=== PATIENT | female | born 1960 | race Caucasian/White ===

== ENCOUNTER 2016-09-03 22:56 | Emergency (ER) | payer MEDICAID, OTHER ==
[~2016-09-03] VITALS: Ht 172.7 cm; Wt 113.4 kg
[~2016-09-03 22:56] MED LIST: ALBU0.0965 IH; GLIP10TE3 PO
[2016-09-03 23:06] VITALS: BP 142/90
--- NOTE | 2016-09-03 23:15 | NUR ---
PT TAKEN TO [facility] FROM [facility]
[2016-09-03] MEDS ORDERED: ESCI10TA PO (23:20)
[2016-09-03] MEDS ORDERED: LOSA50TA39 PO (23:20)
[2016-09-03] MEDS ORDERED: LAM200 PO (23:20)
[2016-09-03] MEDS ORDERED: METF500T PO (23:20)
[2016-09-03] MEDS ORDERED: METO25TE2 PO (23:20)
[2016-09-03] MEDS ORDERED: SIMV80TA1 PO (23:20)
[2016-09-03] MEDS ORDERED: HYDR25TA32 PO (23:20)
--- NOTE | 2016-09-03 23:29 | NUR ---
PT RETURN FROM XRAY TO BED 4
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
--- NOTE | 2016-09-04 00:33 | NUR ---
Madi shukla in [facility] - 09/04/16 at [address] Poe evaluating patient at bedside.
--- NOTE | 2016-09-04 00:38 | NUR ---
Dr. Poe evaluating patient at bedside.
[2016-09-04 01:15] VITALS: BP 142/90
--- NOTE | 2016-09-04 01:15 | NUR ---
Patient discharged with v/s stable. Written and verbal after care instructions given and explained. Patient alert, oriented and verbalized understanding of instructions. Ambulatory with steady gait. All questions addressed prior to discharge. ID band removed. Patient advised to follow up with PMD. Rx of KEFLEX AND NORCO given. Patient educated on indication of medication including possible reaction and side effects. Opportunity to ask questions provided and answered.
== END 2016-09-04 01:15 | disposition home or self-care (01) ==
LOC: MED 22:56
DX: L03.116 Cellulitis of left lower limb (principal); E11.9 Type 2 diabetes mellitus without complications; I10 Essential (primary) hypertension; F12.90 Cannabis use, unspecified, uncomplicated; Z71.6 Tobacco abuse counseling; Z88.1 Allergy status to other antibiotic agents
CPT/HCPCS: 73630; 99284

== ENCOUNTER 2016-09-12 01:55 | Emergency (ER) | payer OTHER ==
[~2016-09-12] VITALS: Ht 172.7 cm; Wt 102.1 kg
[~2016-09-12 01:55] MED LIST changes: +ESCI10TA PO; +HYDR25TA32 PO; +LAM200 PO; +LOSA50TA39 PO; +METF500T PO; +METO25TE2 PO; +SIMV80TA1 PO
--- NOTE | 2016-09-12 07:05 | NUR ---
PATIENT LEFT WITHOUT BEING SEEN BY DR. BLANKENSHIP. NO FURTHER CARE PROVIDED FOR PATIENT.
== END 2016-09-12 07:05 | disposition left against medical advice (07) ==
LOC: MED 01:55
DX: M79.672 Pain in left foot (principal); Z53.21 Procedure and treatment not carried out due to patient leaving prior to being seen by health care provider

== ENCOUNTER 2017-10-26 07:06 | Day surgery (SDC) | payer OTHER ==
[~2017-10-26] VITALS: Ht 170.2 cm; Wt 104.3 kg
[2017-10-26] MEDS ORDERED: MIDAZOLAM 2 MG/2 ML VIAL ONE (09:01)
[2017-10-26] MEDS ORDERED: fentaNYL 0.05 MG/ML VIAL ONE (09:01)
[2017-10-26] MEDS ORDERED: MIDAZOLAM 2 MG/2 ML VIAL IVP ONE (10:15)
== END 2017-10-26 10:46 | disposition home or self-care (01) ==
LOC: MDS 07:06 → MMU 07:08 → MDS 10:36
PROVIDERS: ATTEND Internal Medicine Gastroenterology
DX: K22.10 Ulcer of esophagus without bleeding (principal); K31.89 Other diseases of stomach and duodenum; I10 Essential (primary) hypertension; E11.9 Type 2 diabetes mellitus without complications; J44.9 Chronic obstructive pulmonary disease, unspecified; F41.9 Anxiety disorder, unspecified; F17.210 Nicotine dependence, cigarettes, uncomplicated; K59.00 Constipation, unspecified; M19.90 Unspecified osteoarthritis, unspecified site; E78.5 Hyperlipidemia, unspecified; G43.909 Migraine, unspecified, not intractable, without status migrainosus; F12.90 Cannabis use, unspecified, uncomplicated; Z87.442 Personal history of urinary calculi; Z79.84 Long term (current) use of oral hypoglycemic drugs; Z79.899 Other long term (current) drug therapy; Z88.1 Allergy status to other antibiotic agents; Z90.49 Acquired absence of other specified parts of digestive tract
CPT/HCPCS: 36415; 43239; 82948; 86677; J2250; J3010

== ENCOUNTER 2018-07-13 22:20 | Emergency (ER) | payer OTHER ==
[~2018-07-13] VITALS: Ht 170.2 cm; Wt 104.3 kg
[~2018-07-13 22:20] MED LIST changes: -LOSA50TA39 PO; +LOSA50TA66 PO
[2018-07-13 22:22] VITALS: BP 126/81
--- NOTE | 2018-07-13 22:25 | NUR ---
TO LOBBY A/W BED, VSS , AMBULATORY.
--- NOTE | 2018-07-13 22:56 | NUR ---
PT TAKEN TO BED 8
--- NOTE | 2018-07-13 23:10 | NUR ---
FIRST CONTACT WITH PT C/O L RIB PAIN 11/02 ACHING CONTINUOUS, NONRADIATING WORSENING TODAY, RECENTLY FOUND TO BE BROKEN DURING HOSPITAL VISIT. ALSO C/O WHEEZING IN LUNGS, HX OF COPD, LUNG SOUNDS WHEEZING BILAT THROUGHOUT ON EXPIRATION RESPIS E/U, NO SOB NOTED. DENIES CP/SOB AT THIS TIME. NO OTHER COMPLAINTS. BED LOCKED, IN LOW POSITION, SIE RAILS UPX1. PLACED ON FULL MONITOR.
[2018-07-13] MEDS ORDERED: ALBUTEROL SULFATE/IPRATROPIU 3 ML SOL IH ONE (23:25)
[2018-07-13] MEDS ORDERED: predniSONE 20 MG TAB PO ONE (23:25)
[2018-07-13] MEDS ORDERED: ALBUTEROL 0.083% 2.5 MG/3 ML NEBU INH ONE (23:25)
--- NOTE | 2018-07-13 23:32 | NUR ---
Respiratory Therapist at bedside for respiratory intervention.
--- NOTE | 2018-07-14 00:50 | NUR ---
Dr. Schulz evaluating patient at bedside.
[2018-07-14] MEDS ORDERED: KETOROLAC 60 MG/2 ML VIAL IM ONE (00:55)
--- NOTE | 2018-07-14 01:05 | NUR ---
Madi francisviolet in EDM - 07/14/18 at 0126 by [email or web address] PT REPORT GIVEN TO [facility], TAKEN BLS TO [facility]. TRANSFER TO FACILITY AT THIS TIME. Patient Tranfers to outside Facility Physician: DR DAVIDSON Location:[facility]
[2018-07-14 01:20] VITALS: BP 128/84
--- NOTE | 2018-07-14 01:20 | NUR ---
Patient discharged with v/s stable. Written and verbal after care instructions given and explained. Patient alert, oriented and verbalized understanding of instructions. Ambulatory with steady gait. All questions addressed prior to discharge. ID band removed. Patient advised to follow up with PMD. Rx of PREDNISONE AND NORCO given. Patient educated on indication of medication including possible reaction and side effects. Opportunity to ask questions provided and answered.
== END 2018-07-14 01:20 | disposition home or self-care (01) ==
LOC: MED 22:20
DX: S20.212A Contusion of left front wall of thorax, initial encounter (principal); I10 Essential (primary) hypertension; J44.9 Chronic obstructive pulmonary disease, unspecified; E11.9 Type 2 diabetes mellitus without complications; Z88.1 Allergy status to other antibiotic agents; Z79.84 Long term (current) use of oral hypoglycemic drugs; Z79.899 Other long term (current) drug therapy; X58.XXXA Exposure to other specified factors, initial encounter; Y93.89 Activity, other specified; Y92.89 Other specified places as the place of occurrence of the external cause; Y99.8 Other external cause status
CPT/HCPCS: 94640; 96372; 99283; J1885; J7512; J7613; J7620; 81002

== ENCOUNTER 2018-07-23 08:26 | Emergency (ER) | payer OTHER ==
[~2018-07-23] VITALS: Ht 172.7 cm; Wt 104.3 kg
[2018-07-23 08:35] VITALS: BP 191/90
--- NOTE | 2018-07-23 08:41 | NUR ---
PATIENT AMBULATED TO BED 3.
--- NOTE | 2018-07-23 08:47 | NUR ---
PATIENT PRESENTS TO ED WITH RIGHT SIDE OF FACE PAIN AND SWOLLEN, DOWN TO THROAT PAIN, HARD TO SWOLLOW FOOD. HX: DIABETES, HTN, HIGH CHOLESTEROL, BIPOLAR . PT IS AAOX4 WITH EVEN AND STEADY GAIT; LUNGS CLEAR BL; HR EVEN AND REGULAR; DENIES N/V/D; SKIN IS PINK/WARM/DRY; PT DENIES ANY FEVER, CP, SOB, OR COUGH AT THIS TIME; PATIENT STATES PAIN OF 10/10 AT THIS TIME; PATIENT POSITIONED FOR COMFORT; HOB ELEVATED; BEDRAILS UP X2; BED DOWN. ER MD MADE AWARE OF PT STATUS.
--- NOTE | 2018-07-23 09:32 | NUR ---
Patient being evaluated by physician at bedside.
[2018-07-23 09:51] VITALS: BP 154/80
--- NOTE | 2018-07-23 09:51 | NUR ---
Patient discharged with v/s stable. Written and verbal after care instructions given and explained. Rx of CLINDAMYCIN, NAPROSYN, NORCO given. Patient educated on indication of medication including possible reaction and side effects. ID band removed. Patient advised to follow up with PMD.
== END 2018-07-23 09:51 | disposition home or self-care (01) ==
LOC: MED 08:26
DX: K08.89 Other specified disorders of teeth and supporting structures (principal); F17.210 Nicotine dependence, cigarettes, uncomplicated; J44.9 Chronic obstructive pulmonary disease, unspecified; E11.9 Type 2 diabetes mellitus without complications; I10 Essential (primary) hypertension; Z79.84 Long term (current) use of oral hypoglycemic drugs; Z79.899 Other long term (current) drug therapy; Z88.1 Allergy status to other antibiotic agents
CPT/HCPCS: 82948; 99283

== ENCOUNTER 2021-03-13 13:10 | Emergency (ER) | payer OTHER, SELFPAY ==
[~2021-03-13] VITALS: Ht 170.2 cm; Wt 96.7 kg
[2021-03-13 13:13] VITALS: BP 160/109
--- NOTE | 2021-03-13 13:22 | NUR ---
PT TO WAIT IN TENT
[2021-03-13] MEDS ORDERED: BPM/118S31 PO (14:41)
--- NOTE | 2021-03-13 15:45 | NUR ---
PT LEFT WITHOUT DISCHARGE PAPERWORK. PT WAS PRESCRIBED BROMFED DM COUGH SYRUP, SENT ELECTRONICALLY TO PHARMACY.
== END 2021-03-13 15:45 | disposition home or self-care (01) ==
LOC: MED 13:10
DX: U07.1 COVID-19 (principal); R05.9 Cough, unspecified; J44.9 Chronic obstructive pulmonary disease, unspecified; I10 Essential (primary) hypertension; E11.9 Type 2 diabetes mellitus without complications; Z79.84 Long term (current) use of oral hypoglycemic drugs; Z79.899 Other long term (current) drug therapy; Z88.1 Allergy status to other antibiotic agents
CPT/HCPCS: 99282

== ENCOUNTER 2023-05-22 16:54 | Emergency (ER) | payer OTHER ==
[~2023-05-22] VITALS: Ht 170.2 cm; Wt 92.5 kg
[~2023-05-22 16:54] MED LIST changes: +BROM118S70 PO; +METF-346 PO; -METF500T PO
[2023-05-22 16:58] VITALS: BP 144/77; PULSE 73; RESP 18; TEMP 98.1; O2SAT 99
[2023-05-22] MEDS: KETOROLAC 30 MG/ML VIAL IVP ONE (17:48)
[2023-05-22 17:55] LABS: BASOPHILS % (AUTO) 0.6 % (0.0-2.0); EOSINOPHILS # (AUTO) 0.3 K/uL (0-0.4); EOSINOPHILS % (AUTO) 3.5 % (0.0-4.0); HEMATOCRIT 45.2 % (36-48); HEMOGLOBIN 15.7 g/dL (12.0-16.0); LYMPHOCYTES # (AUTO) 3.2 K/uL (2.5-16.5); LYMPHOCYTES % (AUTO) 39.7 % (20.5-51.1); MEAN CORPUSCULAR HEMOGLOBIN 32 pg (27-31); MEAN CORPUSCULAR HGB CONC 35 g/dL (33-37); MEAN CORPUSCULAR VOLUME 92.6 fL (80-94); MONOCYTES # (AUTO) 0.5 K/uL (0.8-1.0); MONOCYTES % (AUTO) 6.3 % (1.7-9.3); NEUTROPHILS % (AUTO) 49.9 % (42.2-75.2); PLATELET COUNT (AUTO) 193 K/uL (140-450); RED BLOOD CELL COUNT(AUTO) 4.88 MIL/uL (4.20-5.40); RED CELL DISTRIBUTION WIDTH 14.2 % (11.6-13.7)
[2023-05-22 18:12] LABS: ANION GAP 10.4 (8-16); CALCIUM 9.1 mg/dL (8.5-10.1); CARBON DIOXIDE 27.9 mmol/L (21-32); CREATININE 1.5 mg/dL (0.6-1.3); POTASSIUM 4.3 mmol/L (3.5-5.1)
[2023-05-22 18:14] LABS: ALANINE AMINOTRANSFERASE 15 U/L (12-78); ALBUMIN 3.4 g/dL (3.4-5.0); ALKALINE PHOSPHATASE 89 U/L (50-136); ASPARTATE AMINOTRANSFERASE 15 U/L (15-37); BILIRUBIN,DIRECT 0.1 mg/dL (0.0-0.3); TOTAL BILIRUBIN 0.9 mg/dL (0.0-1.0); TOTAL PROTEIN, SERUM 8.4 g/dL (6.4-8.2)
[2023-05-22 18:32] LABS: INR 0.97 (0.8-1.2); PARTIAL THROMBOPLASTIN TIME 27.8 secs (22-35.6); PROTHROMBIN TIME 10.2 secs (10.8-13.4)
[2023-05-22 19:36] VITALS: BP 122/78; PULSE 65; RESP 18; TEMP 98.1; O2SAT 97
[2023-05-22] MEDS: MORPHINE SULFATE 4 MG/ML SYR IVP ONE (20:47)
[2023-05-22] MEDS ORDERED: ACET-8905 PO (20:49)
[2023-05-22] MEDS ORDERED: HYDROcodone/APAP 5/325 MG 1 TAB TAB PO ONE (20:50)
== END 2023-05-22 20:54 | disposition left against medical advice (07) ==
LOC: MED 16:54
DX: R07.9 Chest pain, unspecified (principal); N17.9 Acute kidney failure, unspecified; I11.9 Hypertensive heart disease without heart failure; E11.9 Type 2 diabetes mellitus without complications; J44.9 Chronic obstructive pulmonary disease, unspecified; J45.909 Unspecified asthma, uncomplicated; F17.210 Nicotine dependence, cigarettes, uncomplicated; Z88.8 Allergy status to other drugs, medicaments and biological substances; Z79.4 Long term (current) use of insulin; Z79.899 Other long term (current) drug therapy
CPT/HCPCS: 36415; 71045; 76705; 80048; 80076; 83880; 84484; 85025; 85379; 85610; 85730; 93005; 96374; 99285; J1885; Q0092

== ENCOUNTER 2023-05-24 08:41 | Emergency (ER) | payer OTHER ==
[~2023-05-24] VITALS: Ht 170.2 cm; Wt 92.5 kg
[~2023-05-24 08:41] MED LIST changes: +ACET-8905 PO
[2023-05-24 08:53] VITALS: BP 151/101; PULSE 80; RESP 19; TEMP 98.3; O2SAT 96
[2023-05-24] MEDS: KETOROLAC 60 MG/2 ML VIAL IM ONE (09:51)
[2023-05-24] MEDS ORDERED: ACET-503 PO (10:30)
[2023-05-24 10:35] VITALS: BP 142/78; PULSE 77; RESP 18; TEMP 98.3; O2SAT 96
== END 2023-05-24 10:36 | disposition home or self-care (01) ==
LOC: MED 08:41
DX: M25.511 Pain in right shoulder (principal); R42 Dizziness and giddiness; J44.9 Chronic obstructive pulmonary disease, unspecified; I10 Essential (primary) hypertension; E11.9 Type 2 diabetes mellitus without complications; F17.200 Nicotine dependence, unspecified, uncomplicated; Z90.49 Acquired absence of other specified parts of digestive tract; Z98.890 Other specified postprocedural states; Z79.899 Other long term (current) drug therapy; Z88.1 Allergy status to other antibiotic agents
CPT/HCPCS: 96372; 99283; J1885